=== PATIENT | male | born 1985 | race Caucasian/White ===

== ENCOUNTER 2023-08-17 13:15 | Emergency (ER) | payer OTHER, SELFPAY ==
[2023-08-17] MEDS ORDERED: Lidocaine 1% (PF) 30 ML VIAL ONE (13:47)
[2023-08-17] MEDS ORDERED: Boostrix 0.5 ML (Tdap) VIAL (>/=7 yrs of age) ONE (13:48)
[2023-08-17] MEDS ORDERED: Amoxicillin/Potassium Clav 875 MG TAB ONE (14:57)
[2023-08-17] MEDS ORDERED: Ibuprofen 800 MG TAB ONE (15:14)
[2023-08-17] MEDS ORDERED: Bacitracin 1 PK ONE (15:14)
== END 2023-08-17 15:35 | disposition home or self-care (01) ==
LOC: NAV ERS 13:15
DX: S62.501B Fracture of unspecified phalanx of right thumb, initial encounter for open fracture (principal); I10 Essential (primary) hypertension; Z79.899 Other long term (current) drug therapy; Z23 Encounter for immunization; W31.2XXA Contact with powered woodworking and forming machines, initial encounter
CPT/HCPCS: 90471; 90715; J2001